=== PATIENT | male | born 1960 | race African-American/Black ===

== ENCOUNTER 2021-11-29 10:39 | Emergency (ER) | payer OTHER ==
[~2021-11-29] VITALS: Ht 188 cm; Wt 95.5 kg
[~2021-11-29 10:39] MED LIST: OXYC-490 PO
[2021-11-29] MEDS ORDERED: ACETAMINOPHEN 325 MG TABLET PO ONE (11:30)
[2021-11-29 11:48] VITALS: BP 155/102
== END 2021-11-29 14:09 | disposition home or self-care (01) ==
LOC: EMS 10:47
DX: M25.461 Effusion, right knee (principal); M25.462 Effusion, left knee; I10 Essential (primary) hypertension; Z88.0 Allergy status to penicillin; Z79.899 Other long term (current) drug therapy
CPT/HCPCS: 99284; 73562-TC; Z7502; Z7610

== ENCOUNTER 2023-05-15 15:51 | Emergency (ER) | payer OTHER ==
[~2023-05-15] VITALS: Ht 188 cm; Wt 122.7 kg
[2023-05-15] MEDS ORDERED: AMLO-257 PO (15:53)
[2023-05-15] MEDS ORDERED: LOSA-382 PO (15:53)
[2023-05-15 16:00] VITALS: TEMP 98.2
[2023-05-15] MEDS ORDERED: IBUPROFEN 600 MG TABLET PO ONE (16:30)
[2023-05-15] MEDS ORDERED: CARI-493 PO (17:48)
[2023-05-15 17:50] VITALS: BP 124/73; PULSE 75; RESP 18
== END 2023-05-15 18:15 | disposition home or self-care (01) ==
LOC: EMS 16:00
DX: S13.4XXA Sprain of ligaments of cervical spine, initial encounter (principal); S39.012A Strain of muscle, fascia and tendon of lower back, initial encounter; I10 Essential (primary) hypertension; Z88.0 Allergy status to penicillin; Z79.899 Other long term (current) drug therapy; V49.49XA Driver injured in collision with other motor vehicles in traffic accident, initial encounter; Y93.89 Activity, other specified; Y92.89 Other specified places as the place of occurrence of the external cause; Y99.8 Other external cause status
CPT/HCPCS: 72040; 72070; 72100; 99284; Z7502; Z7610